=== PATIENT | female | born 1950 | race Caucasian/White ===

== ENCOUNTER → 2017-09-24 | Outpatient (CLI) | payer BC ==
[~2017-09-24] MED LIST: Amlodipine Besyl5 MG PO; Benicar Hct 201 EACH PO; CEPH500 PO; CETI10 PO; HAIR, SKIN & N1 EAC1 PO; INSULANPEN SC; NIFE30ER; Omeprazole20 M1 PO; PRED20 PO; VIT1CAPS12 UD
[2017-09-24 16:29] LABS: BASOPHILS ABSOLUTE AUTO 0.03 K/mm3 (0.00-0.23); BASOPHILS PERCENT AUTO 0 % (0-2); EOSINOPHILS ABSOLUTE AUTO 0.18 K/mm3 (0.00-0.68); EOSINOPHILS PERCENT AUTO 2 % (0-6); Hematocrit 38.7 % (33.0-51.0); Hemoglobin 12.3 g/dL (11.5-16.0); IMMATURE GRAN ABSOLUTE AUTO 0.06 K/mm3 (0.00-0.10); IMMATURE GRAN PERCENT AUTO 1 % (0-1); LYMPHOCYTES ABSOLUTE AUTO 0.78 K/mm3 (0.84-5.20); LYMPHOCYTES PERCENT AUTO 10 % (21-46); MONOCYTES ABSOLUTE AUTO 0.52 K/mm3 (0.16-1.47); MONOCYTES PERCENT AUTO 6 % (4-13); Mean Corpuscular HGB 27.1 pg (26.0-34.0); Mean Corpuscular HGB Conc 31.8 g/dL (31.5-36.5); Mean Corpuscular Volume 85 fL (80-100); Mean Platelet Volume 10.2 fL (9.1-12.4); NEUTROPHILS ABSOLUTE AUTO 6.57 K/mm3 (1.96-9.15); NEUTROPHILS PERCENT AUTO 81 % (41-73); Platelet Count 387 K/mm3 (150-400); RDW Standard Deviation 43.4 fL (35.1-46.3); Red Blood Cell Count 4.54 M/mm3 (3.80-5.20); White Blood Cell Count 8.14 K/mm3 (4.00-11.30)
[2017-09-24 17:08] LABS: Alanine Aminotransfer (ALT/SGP 21 U/L (12-78); Albumin/Globulin Ratio 0.6 (0.8-1.8); Alk Phos 88 U/L (50-136); Anion Gap 10 mmol/L (6-16); Aspartate Aminotrans (AST/SGOT 15 U/L (12-37); Bilirubin, Total 0.4 mg/dL (0.1-1.0); Blood Urea Nitrogen 12 mg/dL (8-24); Bun/Creatinine Ratio 14.5 (12.0-20.0); CO2, Blood 27 mmol/L (21-32); Calcium, Blood 9.1 mg/dL (8.5-10.1); Chloride, Blood 99 mmol/L (98-108); Creatinine, Blood 0.83 mg/dL (0.40-1.00); Globulin, Blood 4.7 g/dL (2.2-4.0); Glomerular Filtration Rate >60 (60-); Glucose, Blood 95 mg/dL (70-99); Potassium, Blood 3.1 mmol/L (3.5-5.5); Sodium, Blood 136 mmol/L (136-145); Total Protein, Blood 7.7 g/dL (6.4-8.2)
== END ==
LOC: LAB 15:25
PROVIDERS: Nurse Practitioner
DX: R53.83 Other fatigue (principal)
CPT/HCPCS: 80053; 84443; 85025

== ENCOUNTER 2017-10-30 19:26 | Emergency (ER) | payer BC ==
[~2017-10-30] VITALS: Ht 167.6 cm; Wt 86.2 kg
[~2017-10-30 19:26] MED LIST changes: -Omeprazole20 M1 PO; -VIT1CAPS12 UD
[2017-10-30] MEDS ORDERED: Omeprazole20 M1 PO (20:02)
[2017-10-30] MEDS ORDERED: VIT1CAPS12 UD (20:02)
[2017-10-30 20:27] LABS: BASOPHILS ABSOLUTE AUTO 0.03 K/mm3 (0.00-0.23); BASOPHILS PERCENT AUTO 0 % (0-2); EOSINOPHILS ABSOLUTE AUTO 0.35 K/mm3 (0.00-0.68); EOSINOPHILS PERCENT AUTO 4 % (0-6); Hematocrit 39.4 % (33.0-51.0); Hemoglobin 12.5 g/dL (11.5-16.0); IMMATURE GRAN PERCENT AUTO 1 % (0-1); LYMPHOCYTES ABSOLUTE AUTO 0.94 K/mm3 (0.84-5.20); LYMPHOCYTES PERCENT AUTO 12 % (21-46); MONOCYTES ABSOLUTE AUTO 0.67 K/mm3 (0.16-1.47); MONOCYTES PERCENT AUTO 8 % (4-13); Mean Corpuscular HGB 26.6 pg (26.0-34.0); Mean Corpuscular HGB Conc 31.7 g/dL (31.5-36.5); Mean Corpuscular Volume 84 fL (80-100); Mean Platelet Volume 9.4 fL (9.1-12.4); NEUTROPHILS ABSOLUTE AUTO 6.02 K/mm3 (1.96-9.15); NEUTROPHILS PERCENT AUTO 74 % (41-73); Platelet Count 388 K/mm3 (150-400); RDW Coefficient Variation 14.4 % (11.7-14.2); RDW Standard Deviation 43.8 fL (35.1-46.3); White Blood Cell Count 8.11 K/mm3 (4.00-11.30)
[2017-10-30 20:40] LABS: International Normalized Ratio 1.06
[2017-10-30 20:46] LABS: Albumin, Blood 3.2 g/dL (3.4-5.0); Albumin/Globulin Ratio 0.7 (0.8-1.8); Bilirubin, Total 0.5 mg/dL (0.1-1.0); Bun/Creatinine Ratio 14.9 (12.0-20.0); Calcium, Blood 9.7 mg/dL (8.5-10.1); Creatinine, Blood 1.21 mg/dL (0.40-1.00); Globulin, Blood 4.9 g/dL (2.2-4.0); Potassium, Blood 3.2 mmol/L (3.5-5.5); Total Protein, Blood 8.1 g/dL (6.4-8.2)
== END 2017-10-31 01:21 | disposition home or self-care (01) ==
LOC: ER 19:26
PROVIDERS: Emergency Medicine
DX: I73.9 Peripheral vascular disease, unspecified (principal); I10 Essential (primary) hypertension; E11.9 Type 2 diabetes mellitus without complications; Z88.2 Allergy status to sulfonamides; Z88.6 Allergy status to analgesic agent; Z88.8 Allergy status to other drugs, medicaments and biological substances; Z79.899 Other long term (current) drug therapy; Z79.4 Long term (current) use of insulin; Z86.718 Personal history of other venous thrombosis and embolism
CPT/HCPCS: 36415; 73701; 73706; 80053; 85025; 85610; 93005; 93010; 93926; 93971; 99284; Q9967

== ENCOUNTER → 2019-06-05 | Outpatient (CLI) | payer MEDICARE, OTHER ==
[~2019-06-05] MED LIST changes: +Omeprazole20 M1 PO; +VIT1CAPS12 UD
[2019-06-12 09:07] LABS: BRUSHITE 2.46 ratio (0.00-3.00); CALCIUM OXALATE 6.17 ratio (0.00-6.00); CALCIUM, URINE 13.9 mg/dL (Not Estab.); CALCIUM, URINE 319.7 mg/24 hr (100.0-300.0); CHLORIDE URINE 122 (110-250); CITRIC ACID (CITRATE) 91 mg/L (Not Estab.); CITRIC ACID(CITRATE) 209 mg/24 hr (320-1240); CREATININE, URINE 1163.8 mg/24 hr (800.0-1800.0); CREATININE, URINE 50.6 mg/dL (Not Estab.); MAGNESIUM, URINE 4.4 mg/dL (Not Estab.); OSMOLALITY, URINE 353 (300-900); SODIUM, URINE 152 (39-258); SODIUM, URINE 66 mmol/L (Not Estab.); STRUVITE 0.03 ratio (0.00-1.00); URINE VOLUME 2300 mL/24 hr (600-1600); URINE VOLUME (PRESERVATIVE) 2300 mL/24 hr (600-1600)
== END | disposition home or self-care (01) ==
LOC: LAB 13:02 → LAB SHORT 13:02 → LAB FUT 03-23 10:55
PROVIDERS: Urology
DX: N20.0 Calculus of kidney (principal)
CPT/HCPCS: 81003; 81050; 82131; 82140; 82340; 82436; 82507; 82570; 83735; 83935; 83945; 84105; 84133; 84300; 84392; 84560

== ENCOUNTER → 2019-09-06 | Outpatient (CLI) | payer MEDICARE, OTHER ==
[2019-09-15 17:07] LABS: BRUSHITE 3.49 ratio (0.00-3.00); CALCIUM OXALATE 10.04 ratio (0.00-6.00); CALCIUM, URINE 16.1 mg/dL (Not Estab.); CALCIUM, URINE 273.7 mg/24 hr (100.0-300.0); CHLORIDE URINE 77 (110-250); CITRIC ACID (CITRATE) 60 mg/L (Not Estab.); CITRIC ACID(CITRATE) 102 mg/24 hr (320-1240); CREATININE, URINE 1009.8 mg/24 hr (800.0-1800.0); CREATININE, URINE 59.4 mg/dL (Not Estab.); MAGNESIUM, URINE 5.6 mg/dL (Not Estab.); MONOSODIUM URATE 2.16 ratio (0.00-4.00); OSMOLALITY, URINE 383 (300-900); SODIUM, URINE 58 mmol/L (Not Estab.); SODIUM, URINE 99 (39-258); STRUVITE 0.04 ratio (0.00-1.00); URIC ACID 0.74 ratio (0.00-1.20); URINE VOLUME 1700 mL/24 hr (600-1600); URINE VOLUME (PRESERVATIVE) 1700 mL/24 hr (600-1600)
== END | disposition home or self-care (01) ==
LOC: LAB 08:44 → LAB SHORT 08:44
PROVIDERS: Urology
DX: N20.0 Calculus of kidney (principal)
CPT/HCPCS: 81050

== ENCOUNTER → 2022-09-14 | Outpatient (CLI) | payer OTHER ==
[2022-09-14 15:43] LABS: Microalb/Creat Ratio UR, Rand 162.203 mg/g (0.000-30.000); Microalbumin, Random Urine 95.7 mg/L (0.000-20.000)
== END | disposition home or self-care (01) ==
LOC: LAB SHORT 11:11
PROVIDERS: Internal Medicine Endocrinology, Diabetes & Metabolism
DX: E11.29 Type 2 diabetes mellitus with other diabetic kidney complication (principal)
CPT/HCPCS: 82043; 82570

== ENCOUNTER → 2023-03-03 | Outpatient (CLI) | payer OTHER ==
[2023-03-03 14:17] LABS: CHOL/HDL RATIO 3.8; Cholesterol 196 mg/dL (50-200); HDL Cholesterol 52 mg/dL (>39); LDL/HDL RATIO 2.3; Low Density Lipoprotein Chol 122 mg/dL (0-110); Triglycerides 112 mg/dL (30-160); Very Low Density Lipoprot Chol 22 mg/dL (6-32)
[2023-03-04 20:06] LABS: HEMOGLOBIN A1C 6.2 % (4.8-5.6)
== END | disposition home or self-care (01) ==
LOC: LAB 09:35 → LAB SHORT 09:35
PROVIDERS: Internal Medicine Endocrinology, Diabetes & Metabolism
DX: E11.42 Type 2 diabetes mellitus with diabetic polyneuropathy (principal); E78.2 Mixed hyperlipidemia
CPT/HCPCS: 80061; 83036

== ENCOUNTER → 2023-03-03 | Outpatient (CLI) | payer OTHER ==
[2023-03-03 15:18] LABS: Microalb/Creat Ratio UR, Rand 109.701 mg/g (0.000-30.000)
== END | disposition home or self-care (01) ==
LOC: LAB SHORT 09:26 → LAB 09:26
PROVIDERS: Internal Medicine Endocrinology, Diabetes & Metabolism
DX: E11.29 Type 2 diabetes mellitus with other diabetic kidney complication (principal)
CPT/HCPCS: 82043; 82570

== ENCOUNTER → 2024-03-01 | Outpatient (CLI) | payer OTHER ==
[~2024-03-01] MED LIST changes: +ATOR10 PO; +HYDCHL25 PO; +HYDROCODONE-AC1 EA10 PO; +LOSA50 PO; +METOPROLOL TART25 MG PO; +ONDA4ODT MM; +PROM25 PO; +TAMS.4ER PO; +TRULICITY0.75 MG/01 SQ; +XARELTO20 M1 PO
[2024-03-01 16:08] LABS: BASOPHILS ABSOLUTE AUTO 0.06 K/mm3 (0.00-0.23); BASOPHILS PERCENT AUTO 1 % (0-2); EOSINOPHILS ABSOLUTE AUTO 0.34 K/mm3 (0.00-0.68); EOSINOPHILS PERCENT AUTO 3 % (0-6); Hematocrit 42.3 % (33.0-51.0); Hemoglobin 13.7 g/dL (11.5-16.0); IMMATURE GRAN ABSOLUTE AUTO 0.04 K/mm3 (0.00-0.10); IMMATURE GRAN PERCENT AUTO 0 % (0-1); LYMPHOCYTES ABSOLUTE AUTO 1.34 K/mm3 (0.84-5.20); LYMPHOCYTES PERCENT AUTO 14 % (21-46); MONOCYTES ABSOLUTE AUTO 0.89 K/mm3 (0.16-1.47); MONOCYTES PERCENT AUTO 9 % (4-13); Mean Corpuscular HGB Conc 32.4 g/dL (31.5-36.5); Mean Corpuscular Volume 87 fL (80-100); Mean Platelet Volume 10.4 fL (9.1-12.4); NEUTROPHILS ABSOLUTE AUTO 7.29 K/mm3 (1.96-9.15); NEUTROPHILS PERCENT AUTO 73 % (41-73); Platelet Count 324 K/mm3 (150-400); RDW Coefficient Variation 13.4 % (11.7-14.2); RDW Standard Deviation 42.1 fL (35.1-46.3); Red Blood Cell Count 4.89 M/mm3 (3.80-5.20); White Blood Cell Count 9.96 K/mm3 (4.00-11.30)
[2024-03-01 16:17] LABS: Albumin, Blood 3.4 g/dL (3.4-5.0); Albumin/Globulin Ratio 0.7 (0.8-1.8); Bilirubin, Total 0.4 mg/dL (0.1-1.0); Bun/Creatinine Ratio 16.8 (12.0-20.0); Calcium, Blood 9.5 mg/dL (8.5-10.1); Creatinine, Blood 1.37 mg/dL (0.40-1.00); Globulin, Blood 4.7 g/dL (2.2-4.0); Potassium, Blood 3.2 mmol/L (3.5-5.5); Total Protein, Blood 8.1 g/dL (6.4-8.2)
== END | disposition home or self-care (01) ==
LOC: LAB 16:02 → LAB SHORT 16:02
PROVIDERS: Physician Assistant
DX: R07.9 Chest pain, unspecified (principal)
CPT/HCPCS: 80053; 84484; 85025; 85379

== ENCOUNTER 2024-03-05 19:16 | Emergency (ER) | payer OTHER ==
[~2024-03-05] VITALS: Ht 167.6 cm; Wt 94.3 kg
[~2024-03-05 19:16] MED LIST changes: -ATOR10 PO; -HYDCHL25 PO; -HYDROCODONE-AC1 EA10 PO; -LOSA50 PO; -METOPROLOL TART25 MG PO; -PROM25 PO; -TRULICITY0.75 MG/01 SQ; -XARELTO20 M1 PO
[2024-03-05] MEDS ORDERED: Ondansetron HCl 2 MG / ML 2ML Vial IV ONE (19:30)
[2024-03-05] MEDS ORDERED: NS 1,000 ML IV SCH (19:30)
[2024-03-05 19:40] LABS: BASOPHILS ABSOLUTE AUTO 0.03 K/mm3 (0.00-0.23); BASOPHILS PERCENT AUTO 0 % (0-2); EOSINOPHILS ABSOLUTE AUTO 0.03 K/mm3 (0.00-0.68); EOSINOPHILS PERCENT AUTO 0 % (0-6); Hematocrit 41.1 % (33.0-51.0); IMMATURE GRAN ABSOLUTE AUTO 0.03 K/mm3 (0.00-0.10); IMMATURE GRAN PERCENT AUTO 0 % (0-1); LYMPHOCYTES ABSOLUTE AUTO 0.88 K/mm3 (0.84-5.20); LYMPHOCYTES PERCENT AUTO 11 % (21-46); MONOCYTES ABSOLUTE AUTO 0.67 K/mm3 (0.16-1.47); MONOCYTES PERCENT AUTO 9 % (4-13); Mean Corpuscular HGB 28.5 pg (26.0-34.0); Mean Corpuscular HGB Conc 34.1 g/dL (31.5-36.5); Mean Corpuscular Volume 84 fL (80-100); Mean Platelet Volume 10.3 fL (9.1-12.4); NEUTROPHILS PERCENT AUTO 79 % (41-73); Platelet Count 285 K/mm3 (150-400); RDW Coefficient Variation 13.4 % (11.7-14.2); RDW Standard Deviation 41.1 fL (35.1-46.3); Red Blood Cell Count 4.92 M/mm3 (3.80-5.20); White Blood Cell Count 7.74 K/mm3 (4.00-11.30)
[2024-03-05] MEDS ORDERED: HYDCHL25 PO (19:59)
[2024-03-05 20:00] LABS: Albumin, Blood 3.3 g/dL (3.4-5.0); Albumin/Globulin Ratio 0.8 (0.8-1.8); Bilirubin, Total 0.6 mg/dL (0.1-1.0); Bun/Creatinine Ratio 19.5 (12.0-20.0); Calcium, Blood 8.7 mg/dL (8.5-10.1); Creatinine, Blood 0.77 mg/dL (0.40-1.00); Globulin, Blood 4.3 g/dL (2.2-4.0); Potassium, Blood 3.7 mmol/L (3.5-5.5); Total Protein, Blood 7.6 g/dL (6.4-8.2)
[2024-03-05] MEDS ORDERED: XARELTO20 M1 PO (20:00)
[2024-03-05] MEDS ORDERED: LOSA50 PO (20:01)
[2024-03-05] MEDS ORDERED: METOPROLOL TART25 MG PO (20:01)
[2024-03-05] MEDS ORDERED: ATOR10 PO (20:02)
[2024-03-05] MEDS ORDERED: TRULICITY0.75 MG/01 SQ (20:03)
[2024-03-05 21:50] LABS: Source, Urine Clean Catch
[2024-03-05] MEDS ORDERED: Promethazine HCl 25 MG Tab PO ONE (21:50)
[2024-03-05 21:55] LABS: Bilirubin, Urine Neg (Neg); Blood, Urine Neg (Neg); Glucose Qualitative, Urine Neg (Neg); Ketones, Urine 2+ (Neg); Leukocyte Esterase, Urine Neg (Neg); Nitrite, Urine Neg (Neg); Protein, Urine 1+ (Neg); Urobilinogen, Urine NORM (Normal); pH, Urine 6.5 (5.0-8.0)
[2024-03-05 22:00] LABS: Appearance, Urine Clear (Clear); Color, Urine Pale Yellow (P-Yellow)
[2024-03-05 22:03] VITALS: BP 170/93
[2024-03-05] MEDS ORDERED: HYDROCODONE-AC1 EA10 PO ×2 (22:50→23:21)
[2024-03-05] MEDS ORDERED: PROM25 PO ×2 (22:50→23:21)
[2024-03-05] MEDS ORDERED: HYDROcodone 5-APAP 325 TAB PO ONE (22:55)
== END 2024-03-05 23:00 | disposition home or self-care (01) ==
LOC: ER 19:16
PROVIDERS: Emergency Medicine
DX: R10.11 Right upper quadrant pain (principal); R11.2 Nausea with vomiting, unspecified; I10 Essential (primary) hypertension; E11.9 Type 2 diabetes mellitus without complications; Z79.899 Other long term (current) drug therapy; Z79.4 Long term (current) use of insulin; Z88.2 Allergy status to sulfonamides; Z88.6 Allergy status to analgesic agent; Z88.8 Allergy status to other drugs, medicaments and biological substances
CPT/HCPCS: 76705; 80053; 85025; A9270; J2405; J7030

== ENCOUNTER 2024-03-09 18:39 | Inpatient (IN) | payer OTHER ==
[~2024-03-09] VITALS: Ht 165.1 cm; Wt 94.8 kg
[~2024-03-09 18:39] MED LIST changes: -EZET10 PO; -[UNRECOGNIZED DRUG - OTHER] PO
[2024-03-09 21:41] LABS: Bun/Creatinine Ratio 24.1 (12.0-20.0); Calcium, Blood 8.7 mg/dL (8.5-10.1); Creatinine, Blood 2.03 mg/dL (0.40-1.00); Magnesium, Blood 2.3 mg/dL (1.6-2.4); Potassium, Blood 2.9 mmol/L (3.5-5.5)
[2024-03-09] MEDS ORDERED: Lactated Ringer's 1,000 ML IV SCH (21:50)
[2024-03-09] MEDS ORDERED: Potassium Chloride 20 MEQ TabCR PO ONE (21:55)
[2024-03-10 02:49] VITALS: BP 148/79
[2024-03-10] MEDS ORDERED: NS 1,000 ML IV ONE (03:22)
[2024-03-10 04:25] LABS: Source, Urine Clean Catch
[2024-03-10 04:41] LABS: Bilirubin, Urine Neg (Neg); Blood, Urine Neg (Neg); Glucose Qualitative, Urine Neg (Neg); Ketones, Urine Neg (Neg); Leukocyte Esterase, Urine Neg (Neg); Nitrite, Urine Neg (Neg); Protein, Urine 1+ (Neg); Urobilinogen, Urine NORM (Normal)
[2024-03-10 04:50] LABS: Appearance, Urine Clear (Clear); Color, Urine Yellow (P-Yellow)
[2024-03-10 05:09] VITALS: BP 152/78
[2024-03-10] MEDS ORDERED: NS 1,000 ML IV SCH (06:30)
[2024-03-10] MEDS ORDERED: Ondansetron HCl 2 MG / ML 2ML Vial IV PRN (06:40)
[2024-03-10] MEDS ORDERED: HydrALAZINE HCl 20 MG / ML 1ML Vial IV PRN (07:05)
[2024-03-10 07:21] LABS: BASOPHILS ABSOLUTE AUTO 0.03 K/mm3 (0.00-0.23); BASOPHILS PERCENT AUTO 0 % (0-2); EOSINOPHILS ABSOLUTE AUTO 0.31 K/mm3 (0.00-0.68); EOSINOPHILS PERCENT AUTO 3 % (0-6); Hematocrit 37.9 % (33.0-51.0); Hemoglobin 12.6 g/dL (11.5-16.0); IMMATURE GRAN ABSOLUTE AUTO 0.04 K/mm3 (0.00-0.10); IMMATURE GRAN PERCENT AUTO 0 % (0-1); LYMPHOCYTES ABSOLUTE AUTO 1.63 K/mm3 (0.84-5.20); LYMPHOCYTES PERCENT AUTO 17 % (21-46); MONOCYTES ABSOLUTE AUTO 1.18 K/mm3 (0.16-1.47); MONOCYTES PERCENT AUTO 12 % (4-13); Mean Corpuscular HGB 28.3 pg (26.0-34.0); Mean Corpuscular HGB Conc 33.2 g/dL (31.5-36.5); Mean Corpuscular Volume 85 fL (80-100); Mean Platelet Volume 10.3 fL (9.1-12.4); NEUTROPHILS ABSOLUTE AUTO 6.44 K/mm3 (1.96-9.15); NEUTROPHILS PERCENT AUTO 67 % (41-73); Platelet Count 267 K/mm3 (150-400); RDW Coefficient Variation 13.3 % (11.7-14.2); Red Blood Cell Count 4.46 M/mm3 (3.80-5.20); White Blood Cell Count 9.63 K/mm3 (4.00-11.30)
[2024-03-10 07:30] VITALS: BP 152/91
[2024-03-10] MEDS ORDERED: Insulin Regular 100 UNIT/ML 10ML Vial SC SCH (07:30)
[2024-03-10] MEDS ORDERED: EZET10 PO (07:33)
[2024-03-10] MEDS ORDERED: [UNRECOGNIZED DRUG - OTHER] PO (07:35)
[2024-03-10 07:39] LABS: Albumin/Globulin Ratio 0.8 (0.8-1.8); Bilirubin, Total 0.4 mg/dL (0.1-1.0); Bun/Creatinine Ratio 28.2 (12.0-20.0); Calcium, Blood 8.5 mg/dL (8.5-10.1); Creatinine, Blood 1.49 mg/dL (0.40-1.00); Globulin, Blood 3.6 g/dL (2.2-4.0); Magnesium, Blood 2.1 mg/dL (1.6-2.4); Total Protein, Blood 6.6 g/dL (6.4-8.2)
[2024-03-10] MEDS ORDERED: ValACYClovir HCL 500 MG Tab PO SCH (09:00)
[2024-03-10] MEDS ORDERED: Rivaroxaban 10 MG Tab PO SCH (09:00)
[2024-03-10] MEDS ORDERED: NS KCl 20mEq 1,000 ML IV SCH ×2 (10:40→21:00)
[2024-03-10] MEDS ORDERED: Potassium Chloride 20 MEQ TabCR PO ONE (10:40)
[2024-03-10] MEDS ORDERED: Metoprolol Succinate 50 MG TABCR PO SCH (10:45)
[2024-03-10 14:10] LABS: BASOPHILS ABSOLUTE AUTO 0.04 K/mm3 (0.00-0.23); BASOPHILS PERCENT AUTO 0 % (0-2); EOSINOPHILS ABSOLUTE AUTO 0.11 K/mm3 (0.00-0.68); EOSINOPHILS PERCENT AUTO 1 % (0-6); Hematocrit 39.7 % (33.0-51.0); IMMATURE GRAN ABSOLUTE AUTO 0.05 K/mm3 (0.00-0.10); IMMATURE GRAN PERCENT AUTO 1 % (0-1); LYMPHOCYTES PERCENT AUTO 17 % (21-46); MONOCYTES ABSOLUTE AUTO 1.04 K/mm3 (0.16-1.47); MONOCYTES PERCENT AUTO 10 % (4-13); Mean Corpuscular HGB 28.3 pg (26.0-34.0); Mean Corpuscular HGB Conc 32.7 g/dL (31.5-36.5); Mean Corpuscular Volume 87 fL (80-100); Mean Platelet Volume 11.2 fL (9.1-12.4); NEUTROPHILS ABSOLUTE AUTO 7.33 K/mm3 (1.96-9.15); NEUTROPHILS PERCENT AUTO 71 % (41-73); Platelet Count 293 K/mm3 (150-400); RDW Coefficient Variation 13.5 % (11.7-14.2); RDW Standard Deviation 42.3 fL (35.1-46.3); Red Blood Cell Count 4.59 M/mm3 (3.80-5.20); White Blood Cell Count 10.37 K/mm3 (4.00-11.30)
[2024-03-10 14:13] LABS: Albumin, Blood 3.1 g/dL (3.4-5.0); Albumin/Globulin Ratio 0.8 (0.8-1.8); Bilirubin, Total 0.3 mg/dL (0.1-1.0); Bun/Creatinine Ratio 24.5 (12.0-20.0); Calcium, Blood 8.9 mg/dL (8.5-10.1); Creatinine, Blood 2.04 mg/dL (0.40-1.00); Globulin, Blood 4.1 g/dL (2.2-4.0); Magnesium, Blood 2.3 mg/dL (1.6-2.4); Potassium, Blood 3.1 mmol/L (3.5-5.5); Total Protein, Blood 7.2 g/dL (6.4-8.2)
--- NOTE | 2024-03-10 14:52 | NUR ---
Pt. is awake in bed and welcomes my visit. Pt.is pleasant. Facilitate a lengthy life review where the Pt. 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 Listen with interest. Pt. displayed evidence of being aware of her condition and engaged with being her own advocate. Considered matters of lore and belief. Pt. displayed no evidene of anxiety, but verbalizaed an expectation that she would be discharged home sometime on the weekend. Prayed with Pt. Pt. verbalized gratitude for the spiritual care visit.
[2024-03-10 15:05] VITALS: BP 134/95
[2024-03-10 19:36] VITALS: BP 144/91
[2024-03-10] MEDS ORDERED: Insulin Glargine-Yfgn 100 Unit/mL 3 ML SYR SC SCH (21:00)
[2024-03-11] MEDS ORDERED: Loperamide HCl 2 MG Cap PO PRN (01:20)
[2024-03-11 03:32] VITALS: BP 175/94
[2024-03-11 05:09] LABS: Hematocrit 37.9 % (33.0-51.0); Hemoglobin 12.3 g/dL (11.5-16.0); Mean Corpuscular HGB Conc 32.5 g/dL (31.5-36.5); Mean Corpuscular Volume 86 fL (80-100); Mean Platelet Volume 10.4 fL (9.1-12.4); Platelet Count 255 K/mm3 (150-400); RDW Coefficient Variation 13.4 % (11.7-14.2); White Blood Cell Count 7.77 K/mm3 (4.00-11.30)
[2024-03-11 05:27] LABS: Albumin, Blood 2.9 g/dL (3.4-5.0); Albumin/Globulin Ratio 0.7 (0.8-1.8); Bilirubin, Total 0.4 mg/dL (0.1-1.0); Globulin, Blood 3.9 g/dL (2.2-4.0); Potassium, Blood 3.5 mmol/L (3.5-5.5); Total Protein, Blood 6.8 g/dL (6.4-8.2)
--- NOTE | 2024-03-11 06:15 | NUR ---
Shift Summary Pt rcving IV Potassium w/ NS t/o the shift as ordered @ 100 ml/hr. She is AOx4, independent in the room. She did not require any fast acting insulin this shift, her HS blood sugar was 156 and she was given her scheduled 15 units of glargine. at 0330 her BP was 175/94, gave PRN hydralazine as ordered. She did c/o loose bowel movements saying she had 3 on 03/10. I called the hospitalist who ordered PRN immodium, I gave the 1st dose of 4 mg. She didn't have any more BMs t/o the night. No c/o of pain or nausea, she slept well t/o most of the night.
[2024-03-11 07:44] VITALS: BP 144/89
--- NOTE | 2024-03-11 13:14 | NUR ---
DOWNTIME PAPER ASSESSMENT DONE DUE TO NOT BEING ABLE TO ACCESS INTERVENTIONS IN MEDICATION. PAPER ASSESSMENT IN CHART.
--- NOTE | 2024-03-11 13:43 | NUR ---
DISCHARGE SUMMARY PT A/O X4, PLEASANT AND COOPERATIVE WITH CARE. IND IN THE ROOM. POTASSIUM LEVELS NOW WNL. IN ISOLATION FOR SHINGLES WITH NO OPEN SORES. PROVIDED WRITTEN PRESCRIPTION FOR VALTREX. PT SAYS THAT SHE ALREADY HAS PRESCRIPTION AT HOME. OTHER NEW MEDICATIONS FAXED TO [facility]. PT TO DC HOME WITH . IV WNL AND REMOVED BY THIS RN FOR DISCHARGE. IV REMOVAL CHARTED ON DOWNTIME PAPER CHARTING DUE TO NOT [facility] PAPER NOTE IN CHART.
== END 2024-03-11 14:06 | disposition home or self-care (01) | DRG 684 ==
LOC: ER 18:39 → MEDS 18:40 → ENPENDDIS 03-11 12:42 → MEDS 03-11 14:06
PROVIDERS: Emergency Medicine; Family Medicine; Internal Medicine; ADMIT Student in an Organized Health Care Education/Training Program
DX: N17.9 Acute kidney failure, unspecified (principal); E86.0 Dehydration; R19.7 Diarrhea, unspecified; E87.6 Hypokalemia; I11.0 Hypertensive heart disease with heart failure; E11.51 Type 2 diabetes mellitus with diabetic peripheral angiopathy without gangrene; N20.0 Calculus of kidney; B02.9 Zoster without complications; I95.9 Hypotension, unspecified; Z79.4 Long term (current) use of insulin; Z86.718 Personal history of other venous thrombosis and embolism; Z79.01 Long term (current) use of anticoagulants
CPT/HCPCS: 36415; 51798; 80048; 80053; 82570; 82947; 83735; 84300; 85025; 85027; 99284; A9270; G0378; J0360; J1815; J3480; J7030; J7120

== ENCOUNTER → 2024-03-09 | Outpatient (CLI) | payer OTHER ==
[~2024-03-09] MED LIST changes: +ATOR10 PO; +EZET10 PO; +HYDCHL25 PO; +HYDROCODONE-AC1 EA10 PO; +LOSA50 PO; +METOPROLOL TART25 MG PO; +PROM25 PO; +TRULICITY0.75 MG/01 SQ; +XARELTO20 M1 PO; +[UNRECOGNIZED DRUG - OTHER] PO
[2024-03-09 18:02] LABS: Bun/Creatinine Ratio 18.9 (12.0-20.0); Creatinine, Blood 2.75 mg/dL (0.40-1.00); Potassium, Blood 2.9 mmol/L (3.5-5.5)
== END | disposition home or self-care (01) ==
LOC: LAB 17:52 → LAB SHORT 17:52
PROVIDERS: Emergency Medicine
DX: E86.0 Dehydration (principal)
CPT/HCPCS: 80048